=== PATIENT | female | born 1955 | race Caucasian/White ===

== ENCOUNTER 2024-05-23 08:20 | Emergency (ER) | payer OTHER, SELFPAY ==
[2024-05-23 08:20] VITALS: BP 165/106
--- NOTE | 2024-05-23 08:47 | ED.GENMED ---
History of Present Illness
General
Chief Complaint: Alcohol Problem
Source: patient and other (family)
Exam Limitations: none
Time Seen by Provider: 05/23/24 08:34
Nursing documentation reviewed up to this point in time: agreed with
History of Present Illness
History of Present Illness:
68 yo female presents to the emergency department c/o excessive drinking, concerned about alcohol withdrawal seizure. She drank last at 630 am. She was seen at [facility] 2 days ago for the same and prescribed Ativan.
Past History
Past History
ED Past Medical History: CVA, GERD, HTN, Psychiatric (alcohol abuse, anxiety) and Other (PFO)
ED Past Surgical History: None
Social History
Tobacco: Smoker
Alcohol: Daily (Wine a bottle)
Personal:
Living: with family
Review of Systems
Review of Systems
Allergies reviewed?: Yes
All Other Systems: Not applicable
Constitutional: Reports no symptoms
EENT: Reports no symptoms
Respiratory: Reports no symptoms
Cardiac: Reports no symptoms
ABD/GI: Reports no symptoms
: Reports no symptoms
Musculoskeletal: Reports no symptoms
Skin: Reports no symptoms
Neurological: Reports no symptoms
Endocrine: Reports no symptoms
Hematologic/Lymphatic: Reports no symptoms
Psychiatric: Reports no symptoms
Phy Exam
Physical Exam
Physical Exam:
Physical Exam
General: Alcohol on breath
Neck: supple. no meningeal signs. normal posterior pharynx
Heart: s1/s2 regular rate and rhythm, no murmur. equal radial
pulses.
HEENT: Pupils equal round reactive to light, EOMI
Lungs: no acute respiratory distress. clear bilaterally
Abdomen: normal bowel sounds. not tender. no CVAT
Neuro: alert and oriented. no focal neurological deficits cranial nerves II through XII intact
Skin: no rash
Psychiatric: well kept. interactive and cooperative
Extremities: no edema. no calf tenderness. negative homans. good distal pulses
Scores
Withdrawal Assessment of Alcohol
Withdrawal Assessment Completed?: Yes
Nausea and Vomiting: No nausea and no vomiting
Tactile Disturbances: None
Tremor: No tremor
Auditory Disturbances: Not present
Paroxysmal Sweats: No sweat visible
Visual Disturbances: Not present
Anxiety: No anxiety, at ease
Headache, Fullness in Head: Not present
Agitation: Normal activity
Orientation and clouding of sensorium: Oriented and can do serial additions
Total CIWA Score: 0
Alcohol Withdrawal Medication Recommendation: Equal to MSAS Score 0-4. Monitor & re-assess q2hrs, NO MEDICATION NEEDED
Course
Orders/Labs/Results
Orders:
Orders
05/23/24 08:51
Alcohol Urgent
Basic Metabolic Panel Urgent
Complete Blood Count/With Diff Urgent
05/23/24 10:12
Ondansetron Injectable [Zofran] 4 mg .ROUTE .STK-MED ONE
05/23/24 10:13
Ondansetron Injectable [Zofran] 4 mg IV NOW STA
05/23/24 11:04
Lorazepam [Ativan] 1 mg IV NOW STA
Abnormal Lab Results
05/23/24
08:51
MCH 33.7 H pg
(27.0-31.0)
Abs Immat Gran (auto) 0.1 H 10^3/uL
(0-0.05)
Immature Gran % 0.9 H %
(0-0.5)
05/23/24 08:51
05/23/24 08:51
Vital Signs
Initial and Last Documented VS:
Initial Vital Signs
Temp Pulse Resp BP Pulse Ox
98.4 F 85 18 165/106 96
05/23/24 08:20 05/23/24 08:20 05/23/24 08:20 05/23/24 08:20 05/23/24 08:20
Last Documented Vital Signs
Temp Pulse Resp BP Pulse Ox
98.4 F 81 18 144/88 91
05/23/24 08:20 05/23/24 12:00 05/23/24 12:00 05/23/24 11:00 05/23/24 11:45
MDM/Problems Addressed
Differential Diagnosis Includes:
Alcohol withdrawal
MDM/Problems Addressed:
68-year-old female with alcohol intoxication. She is concern for alcohol withdrawal. No signs of withdrawal. Will give prescription for Librium. Patient has outpatient follow-up. No indication for admission.
Chronic conditions affecting care: HTN
Acute Exacerbation and/or Progression of Chronic Illness: HTN
*Pulse Oximetry
Patient hypoxic: no
*Critical Care Note
Total Time (30-74mins, 75-104mins- exclusive of procedures): Not Applicable
Patient Management
Social determinants of health affecting care: Living situation and Substance abuse (alcoholic)
Discussion with other providers: Other ([facility] saw pt, declines inpatient treatment)
Escalation/DeEscalation of care consider admission/obs:
admit not indicated
ED Attending Note
-
Portions of this chart may have been created with voice recognition software.� Occasional wrong word or��sound alike� substitutions may have occurred due to the inherent limitations of voice recognition software.
Discharge Plan
Departure
Patient Disposition: Home (Routine Discharge)
Date of Disposition: 05/23/24
Time of Disposition: 12:52
Patient with high blood pressure during this ER visit?: Yes
Condition: Good
Discharge Problem:
Alcohol abuse
Instructions: Alcohol Use Disorder (DC)
Prescriptions:
New
chlordiazepoxide HCl 25 mg capsule
See Rx Instructions .ROUTE .COMPLEX Qty: 20 0RF
Rx Instructions:
Day 1: 2 caps every 6 hrs.
2: 2 caps every 8 hrs.
3: 2 caps every 12 hrs.
4: 2 caps once at bedtime.
Referrals:
Sarah Obando CRNP [Family Provider] -
Interventions
Interventions:
*Risk Screen - Suicide Last Done: 05/23/24 08:45
*General Assessment Last Done: 05/23/24 08:45
*Neglect/Abuse Screening Last Done: 05/23/24 08:45
ED- Neurological Assessment Last Done: 05/23/24 08:45
ED-Psychological Assessment Last Done: 05/23/24 08:45
Discharge Date and Time
Print Language: [place]
[2024-05-23 08:51] VITALS: BP 143/91
[2024-05-23 09:00] VITALS: BP 161/95
[2024-05-23 09:32] LABS: % Basophils 1.1 % (0-2); % Eosinophils 1.7 % (0-6); % Immature Granulocytes 0.9 % (0-0.5); % Neutrophils 59.3 % (42.2-75.2); Absolute Basophils 0.1 10^3/uL (0-0.2); Absolute Eosinophils 0.1 10^3/uL (0-0.7); Absolute Immature Granulocytes 0.1 10^3/uL (0-0.05); Absolute Monocytes 0.6 10^3/uL (0.1-0.6); Absolute Neutrophils 4.2 10^3/uL (1.4-6.5); Hematocrit 41.6 % (37.0-47.0); Hemoglobin 14.8 g/dL (12.0-16.0); Mean Corp Hgb Conc. 35.6 g/dL (33.0-37.0); Mean Corpuscular Hgb 33.7 pg (27.0-31.0); Mean Corpuscular Volume 94.8 fL (81.0-99.0); Mean Platelet Volume 9.9 fL (7.4-10.4); Nucleated Red Blood Cells % 0 %; Platelet Count 283 10^3/uL (130-400); Red Blood Cell Count 4.39 10^6/uL (4.20-5.40); Red Cell Dist. Width 13.1 % (11.5-14.5)
[2024-05-23 09:51] LABS: Alcohol 233 mg/dl; Blood Urea Nitrogen 17 mg/dl (7-17); Carbon Dioxide 25 mmol/L (22-30); Chloride 104 mmol/L (98-107); Glucose 86 mg/dl (70-99); Sodium 139 mmol/L (135-145); eGFR > 60.00
[2024-05-23 10:00] VITALS: BP 149/87
[2024-05-23] MEDS: ZOFRAN 4 MG IV (10:15)
[2024-05-23 11:00] VITALS: BP 144/88
[2024-05-23] MEDS: ATIVAN 1 MG IV (11:13)
[2024-05-23 13:13] VITALS: BP 148/99
== END 2024-05-23 13:28 | disposition home or self-care (01) ==
LOC: EMR 08:20
PROVIDERS: EMERGENCY PHYSICIAN Emergency Medicine; FAMILY PHYSICIAN Nurse Practitioner Family
DX: F10.129 Alcohol abuse with intoxication, unspecified (principal); I10 Essential (primary) hypertension; K21.9 Gastro-esophageal reflux disease without esophagitis; Q21.12 Patent foramen ovale; F41.9 Anxiety disorder, unspecified; F17.200 Nicotine dependence, unspecified, uncomplicated; Z86.73 Personal history of transient ischemic attack (TIA), and cerebral infarction without residual deficits; Z88.8 Allergy status to other drugs, medicaments and biological substances
CPT/HCPCS: 99284; 96374; 96375; 80048; 82077; 85025